=== PATIENT | female | born 1965 ===

== ENCOUNTER 2021-07-23 11:46 | Outpatient (CLI) | payer BC | END 2021-07-23 11:47 | disposition home or self-care (01) | LOC: CSHMRI 11:46 | PROVIDERS: ATTEND Orthopaedic Surgery | DX: S83.241A Other tear of medial meniscus, current injury, right knee, initial encounter (principal); M70.51 Other bursitis of knee, right knee; S83.411A Sprain of medial collateral ligament of right knee, initial encounter ==